=== PATIENT | female | born 1935 | race Caucasian/White ===

== ENCOUNTER 2021-03-31 09:03 | Emergency (ER) | payer MEDICARE, BC ==
[~2021-03-31] VITALS: Ht 154.9 cm; Wt 58.5 kg
[~2021-03-31 09:03] MED LIST: Anastrozole1 GM; WARF4 PO; ZESTORETIC 20-121 EA PO
[2021-03-31] MEDS ORDERED: LISINOPRIL-HCT1 EACH (09:38)
[2021-03-31 12:19] LABS: BASOPHILS ABSOLUTE AUTO 0.04 K/mm3 (0.00-0.23); BASOPHILS PERCENT AUTO 1 % (0-2); EOSINOPHILS PERCENT AUTO 0 % (0-6); Hematocrit 33.2 % (33.0-51.0); Hemoglobin 10.5 g/dL (11.5-16.0); IMMATURE GRAN ABSOLUTE AUTO 0.02 K/mm3 (0.00-0.10); IMMATURE GRAN PERCENT AUTO 0 % (0-1); LYMPHOCYTES ABSOLUTE AUTO 0.46 K/mm3 (0.84-5.20); LYMPHOCYTES PERCENT AUTO 6 % (21-46); MONOCYTES ABSOLUTE AUTO 0.65 K/mm3 (0.16-1.47); MONOCYTES PERCENT AUTO 8 % (4-13); Mean Corpuscular HGB 27.3 pg (26.0-34.0); Mean Corpuscular HGB Conc 31.6 g/dL (31.5-36.5); Mean Corpuscular Volume 87 fL (80-100); Mean Platelet Volume 9.7 fL (9.1-12.4); NEUTROPHILS ABSOLUTE AUTO 6.69 K/mm3 (1.96-9.15); NEUTROPHILS PERCENT AUTO 85 % (41-73); Platelet Count 396 K/mm3 (150-400); RDW Coefficient Variation 13.9 % (11.7-14.2); RDW Standard Deviation 42.6 fL (35.1-46.3); Red Blood Cell Count 3.84 M/mm3 (3.80-5.20); White Blood Cell Count 7.86 K/mm3 (4.00-11.30)
[2021-03-31 12:44] LABS: Albumin, Blood 2.3 g/dL (3.4-5.0); Albumin/Globulin Ratio 0.7 (0.8-1.8); Bilirubin, Total 0.5 mg/dL (0.1-1.0); Bun/Creatinine Ratio 24.5 (12.0-20.0); Calcium, Blood 8.6 mg/dL (8.5-10.1); Creatinine, Blood 0.98 mg/dL (0.40-1.00); Globulin, Blood 3.5 g/dL (2.2-4.0); Potassium, Blood 3.4 mmol/L (3.5-5.5); Total Protein, Blood 5.8 g/dL (6.4-8.2)
[2021-05-11] MEDS ORDERED: SPIRONOLACTONE25 MG PO (12:09)
[2021-05-11] MEDS ORDERED: WARF5 PO (15:42)
[2021-05-11] MEDS ORDERED: ZESTORETIC 20-121 EA PO (21:14)
[2021-05-14] MEDS ORDERED: DOCU100 PO (15:42)
[2021-05-14] MEDS ORDERED: MORP20L PO (15:43)
[2021-05-14] MEDS ORDERED: OMEP20ER PO (15:43)
[2021-05-14] MEDS ORDERED: SENN187 PO (15:44)
[2021-05-14] MEDS ORDERED: Ativan1 MG PO (15:44)
[2021-05-14] MEDS ORDERED: ONDA4ODT PO (15:45)
[2021-05-14] MEDS ORDERED: MURINE EAR LEFTEAR (15:46)
== END 2021-03-31 13:58 | disposition home or self-care (01) ==
LOC: ER 09:03
PROVIDERS: Emergency Medicine
DX: R18.8 Other ascites (principal); I10 Essential (primary) hypertension; Z88.8 Allergy status to other drugs, medicaments and biological substances; Z79.01 Long term (current) use of anticoagulants; Z79.899 Other long term (current) drug therapy
CPT/HCPCS: 74176; 80053; 83690; 85025; 99284-25; A9270

== ENCOUNTER → 2021-04-01 | Outpatient (CLI) | payer MEDICARE, BC ==
[~2021-04-01] MED LIST changes: +Ativan1 MG PO; +DOCU100 PO; +LISINOPRIL-HCT1 EACH; +MORP20L PO; +MURINE EAR LEFTEAR; +OMEP20ER PO; +ONDA4ODT PO; +SENN187 PO; +SPIRONOLACTONE25 MG PO; +WARF5 PO
== END | disposition home or self-care (01) ==
LOC: LAB SHORT 16:58 → LAB 16:58
DX: N39.0 Urinary tract infection, site not specified (principal)
CPT/HCPCS: 87086

== ENCOUNTER 2021-04-08 11:40 | Day surgery (SDC) | payer MEDICARE, BC ==
[~2021-04-08] VITALS: Ht 154.9 cm; Wt 60.1 kg
[~2021-04-08 11:40] MED LIST changes: -Ativan1 MG PO; -DOCU100 PO; -MORP20L PO; -MURINE EAR LEFTEAR; -OMEP20ER PO; -ONDA4ODT PO; -SENN187 PO; -SPIRONOLACTONE25 MG PO; -WARF5 PO
--- NOTE | 2021-04-08 12:20 | NUR ---
04/08/21 1220 Yumi Laureano FIRST ATTEMPT MISSED BY RN IN THE RIGHT WRIST. SECOND ATTEMPT MISSED BY RN IN THE RIGHT WRIST. THIRD ATTEMPT ON RAC BY RN SUCCESSFUL. PT TOW.
[2021-05-11] MEDS ORDERED: SPIRONOLACTONE25 MG PO (12:09)
[2021-05-11] MEDS ORDERED: WARF5 PO (15:42)
[2021-05-11] MEDS ORDERED: ZESTORETIC 20-121 EA PO (21:14)
[2021-05-14] MEDS ORDERED: DOCU100 PO (15:42)
[2021-05-14] MEDS ORDERED: MORP20L PO (15:43)
[2021-05-14] MEDS ORDERED: OMEP20ER PO (15:43)
[2021-05-14] MEDS ORDERED: Ativan1 MG PO (15:44)
[2021-05-14] MEDS ORDERED: SENN187 PO (15:44)
[2021-05-14] MEDS ORDERED: ONDA4ODT PO (15:45)
[2021-05-14] MEDS ORDERED: MURINE EAR LEFTEAR (15:46)
== END 2021-04-08 13:47 | disposition home or self-care (01) ==
LOC: ORSCSDS 11:40
PROVIDERS: Internal Medicine Gastroenterology
PROC: 0D757ZZ Dilation of Esophagus, Via Natural or Artificial Opening (ICD-10-PCS; principal; 2021-04-08 13:00)
PROC: 0DB58ZX Excision of Esophagus, Via Natural or Artificial Opening Endoscopic, Diagnostic (ICD-10-PCS; principal; 2021-04-08 13:00)
DX: R13.10 Dysphagia, unspecified (principal); R18.8 Other ascites; R63.4 Abnormal weight loss; I10 Essential (primary) hypertension; E78.5 Hyperlipidemia, unspecified; K44.9 Diaphragmatic hernia without obstruction or gangrene; Z79.01 Long term (current) use of anticoagulants
CPT/HCPCS: 36415; 85610; 85730; 88305; J0690; J2704; J7120

== ENCOUNTER 2021-05-11 11:58 | Inpatient (IN) | payer MEDICARE, BC | END 2021-05-14 16:30 | disposition hospice, home (50) | DRG 180 | LOC: ER 11:58 → ERHOLD 16:27 → MEDS 21:49 | PROVIDERS: ADMIT Internal Medicine | PROC: 0W9G3ZZ Drainage of Peritoneal Cavity, Percutaneous Approach (ICD-10-PCS; principal; 2021-05-12) | DX: C78.00 Secondary malignant neoplasm of unspecified lung (principal); E43 Unspecified severe protein-calorie malnutrition; E87.1 Hypo-osmolality and hyponatremia; R18.0 Malignant ascites; R64 Cachexia; I82.462 Acute embolism and thrombosis of left calf muscular vein; M19.90 Unspecified osteoarthritis, unspecified site; C54.1 Malignant neoplasm of endometrium; D63.1 Anemia in chronic kidney disease; K59.00 Constipation, unspecified; E87.70 Fluid overload, unspecified; I12.9 Hypertensive chronic kidney disease with stage 1 through stage 4 chronic kidney disease, or unspecified chronic kidney disease; N18.30 Chronic kidney disease, stage 3 unspecified; Z68.23 Body mass index [BMI] 23.0-23.9, adult; Z86.711 Personal history of pulmonary embolism; Z98.41 Cataract extraction status, right eye; Z90.710 Acquired absence of both cervix and uterus; Z90.721 Acquired absence of ovaries, unilateral; Z98.890 Other specified postprocedural states; Z90.89 Acquired absence of other organs; Z79.01 Long term (current) use of anticoagulants; Z79.899 Other long term (current) drug therapy ==